=== PATIENT | female | born 1960 | race Caucasian/White ===

== ENCOUNTER 2020-11-21 07:35 | Day surgery (SDC) | payer OTHER ==
[~2020-11-21] VITALS: Ht 152.4 cm; Wt 83.0 kg
[~2020-11-21 07:35] MED LIST: BLACK COHOSH160 MG PO; BRINTELLIX10 MG PO; COLACE100 MG PO; CYCLOBENZAPRINE10 MG; DILAUDID2 MG PO; ELDERBERRY; ESTRACE 0.5 MG0.5 MG PO; ESTRACE2 MG PO; IBUPROFEN200 MG PO; IBUPROFEN800 MG; MULTI-DAY VITAM1 TAB PO; MULTIPLE VITAMI1 TA1 PO; NEXIUM40 MG PO; OMEPRAZOLE40 MG; PHENERGAN25 M1 PO; PROBIOTIC1 EAC1 PO; PROVERA2.5 MG PO; SKELAXIN800 MG PO; TENORMIN25 MG PO; TENORMIN50 MG PO; ULTRAM50 MG PO; XANAX0.25 MG PO; [UNRECOGNIZED DRUG - OTHER] PO
[2020-11-21 08:07] LABS: BASOPHILS 0.5 % (0-2); EOSINOPHILS 3.4 % (0-7); HEMATOCRIT 42.3 % (36.0-48.0); HEMOGLOBIN 14.3 g/dL (12-16); IMMATURE GRANULOCYTES 0.2 % (0-5); LYMPHOCYTE ABS# 1.51 10x3/uL (1.18-3.74); LYMPHOCYTES 25.7 % (15-50); MCH 30.5 pg (26.0-34.0); MCHC 33.8 g/dL (31.0-37.0); MCV 90.2 fL (80.0-100.0); MEAN PLATELET VOLUME 9.5 fL (7.4-10.4); MONOCYTES 12.2 % (2-11); NEUTROPHIL ABS# 3.41 10x3/uL (1.56-6.13); PLATELET COUNT 201 10x3/uL (130-400); RBC 4.69 10x6/uL (4.00-5.40); RDW 12.9 % (11.5-14.5); WBC 5.9 10x3/uL (4.8-10.8)
[2020-11-21 08:12] LABS: CALC OSMOLALITY 278 mosm/kg (275-300); CALCIUM 8.8 mg/dL (8.5-10.1); CARBON DIOXIDE 28.5 mmol/L (21.0-32.0); CHLORIDE - SERUM 106 mmol/L (98-107); CREATININE - SERUM 0.7 mg/dL (0.6-1.3); GLUCOSE 116 mg/dL (74-106); POTASSIUM - SERUM 3.8 mmol/L (3.5-5.1); SODIUM 139 mmol/L (136-145); UREA NITROGEN 13 mg/dL (7-18); eGFR NON AFRICAN AMERICAN > 90 mL/min (90-120)
[2020-11-21 09:16] VITALS: BP 138/83; Ht 152.4 cm; Wt 83.0 kg
[2020-11-21] MEDS ORDERED: DILAUDID2 MG PO (11:12)
--- NOTE | 2020-11-21 13:57 | NUR ---
O2 OFF AND 93% ON ROOM AIR. IV DC'D WITH TIP INTACT.
--- NOTE | 2020-11-22 11:28 | OP ---
PATIENT NAME: JOSE DUMONT MEDICAL RECORD: [id number] :64 LOCATION:D.OPS ADMISSION DATE: SURGEON: TREY ROBERTS MD DATE OF OPERATION: 11/21/2020 PREOPERATIVE DIAGNOSES: 1. Gallstones. 2. Hypertension. 3. GERD. POSTOPERATIVE DIAGNOSES: 1. Gallstones. 2. Hypertension. 3. GERD. PROCEDURE: Laparoscopic cholecystectomy. SURGEON: Trey Roberts MD DESCRIPTION OF PROCEDURE: The patient's abdomen was prepped and draped in sterile fashion. A cutdown was made on the superior aspect of the umbilicus, 0 Vicryls were placed in the fascia laterally and the fascia was incised with a 15-blade. I then bluntly entered the peritoneal cavity and placed a 12-mm Andreas port. Under direct visualization, a 5-mm trocar was placed in the epigastrium and two more 5-mm trocars were placed in the right subcostal region. The gallbladder was distended and had some acute evidence of swelling. The patient also had some large gallstones present. The cystic artery and cystic duct were dissected free and these were clipped proximally and distally and ligated in standard fashion. The gallbladder was taken off the liver bed using electrocautery and placed into the right upper quadrant. Any bleeding from the liver bed was then treated with electrocautery. The ports and insufflation were then removed and the gallbladder was taken out through the umbilicus. The umbilical fascia was closed with interrupted 0 Vicryls times 3. The wounds were irrigated out with normal saline and infused with 10 mL of 0.25% Marcaine with epinephrine. The skin incisions were closed with subcutaneous 5-0 Monocryl and dressed appropriately. COMPLICATIONS: None. CONDITION: Stable. ANESTHESIA: General endotracheal and local. BLOOD LOSS: Minimal. The patient was sent home with a single gallstone per her request. TRANSINT:[id number] Voice Confirmation ID: [id number] DOCUMENT ID: [id number] OPERATIVE REPORT [id number] JOSE DUMONT CHRISTIAN MD at 1128 CC: MARIBEL COBOS and RODOLFO WOLFE [id number] DICTATION DATE: 11/21/20 1114 [facility]ITCH TECHNICIAN: 11/21/20 1550 [facility] 11/21/20 [facility] [address] [place] [address]
== END 2020-11-21 13:30 | disposition home or self-care (01) ==
LOC: D.OPS 07:35
PROVIDERS: ATTEND Surgery
DX: K80.20 Calculus of gallbladder without cholecystitis without obstruction (principal); I10 Essential (primary) hypertension; K21.00 Gastro-esophageal reflux disease with esophagitis, without bleeding

== ENCOUNTER → 2021-01-25 07:07 | Outpatient (CLI) | payer OTHER ==
[2020-11-21 09:16] VITALS: BMI 35.8
[2021-01-25 08:58] LABS: ALBUMIN 3.6 g/dL (3.4-5.0); BILIRUBIN - DIRECT 0.1 mg/dL (0.00-0.30); BILIRUBIN - INDIRECT 0.18 mg/dL (0.00-1.00); BILIRUBIN - TOTAL 0.28 mg/dL (0.2-1.3); PROTEIN - SERUM 6.9 g/dL (6.4-8.2)
== END | disposition home or self-care (01) ==
LOC: D.US 01-24 07:30
PROVIDERS: ATTEND Internal Medicine Gastroenterology
DX: R16.0 Hepatomegaly, not elsewhere classified (principal)